=== PATIENT | male | born 1975 | race Caucasian/White ===

== ENCOUNTER 2016-05-31 18:46 | Inpatient (IN) | payer SELFPAY ==
[~2016-05-31] VITALS: Ht 172.7 cm; Wt 78.0 kg
[2016-05-31 19:20] LABS: BASOPHILS % 1.1 % (0.0-2.0); EOSINOPHILS % 6.3 % (0.0-5.0); HEMATOCRIT. 40.3 % (42.0-52.0); HEMOGLOBIN. 13.3 g/dL (14.0-18.0); LYMPHOCYTES % 28.7 % (20.0-50.0); MEAN CORPUSCULAR HEMOGLOBIN 30.4 pg (28.0-32.0); MEAN CORPUSCULAR HGB CONC 33.1 g/dL (31.0-37.0); MEAN CORPUSCULAR VOLUME 91.8 fL (80.0-94.0); MEAN PLATELET VOLUME 11.2 fl (7.4-10.4); MONOCYTES % 7.9 % (2.0-8.0); PLATELET 174 x1000/uL (130-400); RED BLOOD CELL COUNT 4.39 mill/uL (4.7-6.1); RED CELL DISTRIBUTION WIDTH 14.5 % (11.6-14.6); WHITE BLOOD COUNT 9.2 x1000/uL (4.5-11.0)
[2016-05-31 19:28] LABS: INR 1.1; PARTIAL THROMBOPLASTIN TIME 26.5 sec (24.0-34.0); PROTHROMBIN TIME 11.3 sec
[2016-05-31 19:31] LABS: CALCIUM 8.5 mg/dL (8.5-10.1); MAGNESIUM 2.2 mg/dL (1.8-2.4); PHOSPHORUS 3.4 mg/dL (2.5-4.9)
[2016-05-31] MEDS ORDERED: ONDANSETRON HCL 4MG/2ML VIAL IV STA (22:16)
[2016-05-31] MEDS ORDERED: MORPHINE SULFATE 4 MG/ML CPJ (NOT FOR IM USE) IV STA (22:16)
[2016-05-31] MEDS ORDERED: NITROGLYCERIN OINT 1GM/INCH UDPKT TD STA (22:16)
[2016-05-31] MEDS ORDERED: ASPIRIN 81MG TABLET PO STA (22:16)
[2016-05-31] MEDS ORDERED: CLONIDINE 0.1MG TABLET PO ONE (22:30)
[2016-06-01] MEDS ORDERED: HYDRALAZINE 20MG/ML VIAL IV ONE (08:30)
[2016-06-01] MEDS ORDERED: DOCUSATE SODIUM 100MG CAPSULE PO PRN (11:15)
[2016-06-01] MEDS ORDERED: ONDANSETRON HCL 4MG/2ML VIAL IV PRN (11:15)
[2016-06-01] MEDS ORDERED: CLONIDINE 0.1MG TABLET PO PRN (11:15)
[2016-06-01] MEDS ORDERED: HYDROCODONE/ACETAMINOPHEN 5/325MG TABLET PO PRN (11:15)
[2016-06-01] MEDS ORDERED: AMLODIPINE 10MG TABLET PO SCH (11:15)
[2016-06-01 11:16] VITALS: BP 138/76
[2016-06-01] MEDS ORDERED: METOPROLOL TARTRATE 25MG TABLET PO SCH (12:00)
[2016-06-01] MEDS ORDERED: DEXTROSE 50% WATER 50ML SYRINGE IV PRN (14:00)
[2016-06-01 16:00] VITALS: BP 150/77
[2016-06-01] MEDS ORDERED: BLOOD SUGAR DIAGNOSTIC STRIP TEST SCH (17:40)
[2016-06-01] MEDS ORDERED: INSULIN LISPRO 100 UNITS/ML SUBCUT SCH ×2 (18:10)
[2016-06-01 19:04] LABS: CREATINE KINASE MB FRACTION 2.3 ng/mL (0.5-3.6); TROPONIN I 0.04 ng/mL (0.00-0.04)
[2016-06-01 19:35] VITALS: BP 160/97
== END 2016-06-01 20:05 | disposition home or self-care (01) | DRG 206 ==
LOC: ER 18:48 → 7WST 22:17
PROVIDERS: ADMIT Hospitalist; ATTEND Hospitalist
DX: T82.838A Hemorrhage due to vascular prosthetic devices, implants and grafts, initial encounter (principal); I12.0 Hypertensive chronic kidney disease with stage 5 chronic kidney disease or end stage renal disease; N18.6 End stage renal disease; E11.22 Type 2 diabetes mellitus with diabetic chronic kidney disease; I73.9 Peripheral vascular disease, unspecified; Y84.1 Kidney dialysis as the cause of abnormal reaction of the patient, or of later complication, without mention of misadventure at the time of the procedure; E78.00 Pure hypercholesterolemia, unspecified; Z99.2 Dependence on renal dialysis; Z89.9 Acquired absence of limb, unspecified
CPT/HCPCS: 36415; 71010; 80048; 82550; 82553; 82962; 83735; 84100; 84484; 85025; 85610; 85730; 86850; 86900; 96374; 96375; 99291; J0360; J2270; J2405

== ENCOUNTER 2017-03-21 09:15 | Inpatient (IN) | payer SELFPAY ==
[~2017-03-21] VITALS: Ht 172.7 cm; Wt 64.0 kg
[2017-03-21] MEDS ORDERED: ONDANSETRON HCL 4MG/2ML VIAL IV STA (09:41)
[2017-03-21] MEDS ORDERED: MORPHINE SULFATE 4 MG/ML CPJ (NOT FOR IM USE) IV STA (09:41)
[2017-03-21] MEDS ORDERED: FUROSEMIDE 40MG/4ML VIAL IV ONE (09:45)
[2017-03-21] MEDS ORDERED: NITROGLYCERIN OINT 1GM/INCH UDPKT TD ONE (09:45)
[2017-03-21 10:15] LABS: BASOPHILS % 0.8 % (0.0-2.0); EOSINOPHILS % 3.4 % (0.0-5.0); HEMATOCRIT. 29.8 % (42.0-52.0); HEMOGLOBIN. 9.9 g/dL (14.0-18.0); LYMPHOCYTES % 10.5 % (20.0-50.0); MEAN CORPUSCULAR HEMOGLOBIN 31.8 pg (28.0-32.0); MEAN CORPUSCULAR VOLUME 95.1 fL (80.0-94.0); MEAN PLATELET VOLUME 10.7 fl (7.4-10.4); MONOCYTES % 4.4 % (2.0-8.0); NEUTROPHILS % 80.9 % (40.0-76.0); PLATELET 198 x1000/uL (130-400); RED BLOOD CELL COUNT 3.13 mill/uL (4.7-6.1); RED CELL DISTRIBUTION WIDTH 16.8 % (11.6-14.6)
[2017-03-21] MEDS ORDERED: IPRATROPIUM/ALBUTEROL 0.5-3(2.5)MG/3ML NEB HHN ONE ×2 (10:30→11:30)
[2017-03-21 10:32] LABS: CHLORIDE 96 mEq/L (98-107); TROPONIN I < 0.02 ng/mL (0.00-0.04)
[2017-03-21] MEDS ORDERED: IPRATROPIUM/ALBUTEROL 0.5-3(2.5)MG/3ML NEB HHN PRN (11:00)
[2017-03-21] MEDS ORDERED: DEXTROSE 50% WATER 50ML SYRINGE IV PRN (11:00)
[2017-03-21] MEDS ORDERED: ONDANSETRON HCL 4MG/2ML VIAL IV PRN (11:00)
[2017-03-21 11:02] LABS: INR 1.2; PARTIAL THROMBOPLASTIN TIME 28.7 sec (23.4-31.0); PROTHROMBIN TIME 12.2 sec (9.4-11.6)
[2017-03-21] MEDS: INSULIN LISPRO 100 UNITS/ML SUBCUT SCH ×2 (13:20→20:50)
[2017-03-21] MEDS ORDERED: HYDRALAZINE 20MG/ML VIAL IV ONE (15:15)
[2017-03-21] MEDS ORDERED: FUROSEMIDE 100MG/10ML VIAL IVP NR (15:15)
[2017-03-21] MEDS: CLONIDINE 0.1MG TABLET PO PRN (15:17)
[2017-03-21 15:47] LABS: BG BASE EXCESS 5.5 mmol/L (-2.0-2.0); BG CARBOXYHEMOGLOBIN 0.3 % (0.5-1.5); BG DEOXYHEMOGLOBIN 1.5 % (0.0-5.0); BG FRACTION INSPIRED OXYGEN 100; BG HCO3 ACT 29.6 mmol/L (22.0-26.0); BG METHEMOGLOBIN 0.3 % (0.0-1.5); BG OXYGEN SATURATION 98.5 % (92.0-98.5); BG OXYHEMOGLOBIN 97.9 % (94.0-97.0); BG PH 7.476 (7.350-7.450); BG PO2 121.6 mmHg (75.0-100.0); BG SAMPLE SITE RIGHT BRACHIAL; BG TOTAL HEMOGLOBIN 10.2 g/dL (12.0-18.0); BG VENT MODE MASK - NRB
[2017-03-21 16:57] VITALS: BP 186/111
[2017-03-21] MEDS: BLOOD SUGAR DIAGNOSTIC STRIP TEST SCH ×2 (17:00→20:50)
[2017-03-21 17:15] VITALS: BP 140/77
[2017-03-21 18:00] VITALS: BP 194/99
[2017-03-21] MEDS: NIFEDIPINE XL 60MG TAB PO SCH (18:00)
[2017-03-21 20:00] VITALS: BP 182/95
[2017-03-21 22:00] VITALS: BP 133/70
[2017-03-22] VITALS (11 sets, daily range): BP systolic 119–190; BP diastolic 59–91
[2017-03-22 05:41] LABS: HEMATOCRIT. 27.8 % (42.0-52.0); HEMOGLOBIN. 9.4 g/dL (14.0-18.0); LYMPHOCYTES % 15.9 % (20.0-50.0); MEAN CORPUSCULAR HEMOGLOBIN 32.8 pg (28.0-32.0); MEAN CORPUSCULAR VOLUME 96.9 fL (80.0-94.0); MEAN PLATELET VOLUME 10.6 fl (7.4-10.4); NEUTROPHILS % 71.1 % (40.0-76.0); PLATELET 147 x1000/uL (130-400); RED BLOOD CELL COUNT 2.87 mill/uL (4.7-6.1)
[2017-03-22 05:54] LABS: PHOSPHORUS 4.3 mg/dL (2.5-4.9)
[2017-03-22] MEDS: BLOOD SUGAR DIAGNOSTIC STRIP TEST SCH ×4 (06:05→21:08)
[2017-03-22] MEDS: INSULIN LISPRO 100 UNITS/ML SUBCUT SCH ×4 (06:05→21:08)
[2017-03-22] MEDS: NIFEDIPINE XL 60MG TAB PO SCH ×2 (08:00→21:07)
[2017-03-22] MEDS: LOSARTAN POTASSIUM 50 MG TABLET PO SCH (10:22)
[2017-03-22] MEDS: FUROSEMIDE 80MG TABLET PO SCH (10:22)
[2017-03-22] MEDS: HYDRALAZINE 20MG/ML VIAL IV PRN (13:40)
[2017-03-22] MEDS: IPRATROPIUM/ALBUTEROL 0.5-3(2.5)MG/3ML NEB HHN SCH ×2 (14:48→20:51)
[2017-03-22] MEDS: CLONIDINE 0.1MG TABLET PO PRN ×2 (17:21→22:35)
[2017-03-22] MEDS ORDERED: EPOETIN ALFA 10000UNITS/ML VIAL SUBCUT SCH (21:00)
[2017-03-23] VITALS (10 sets, daily range): BP systolic 144–173; BP diastolic 74–88
[2017-03-23] MEDS: IPRATROPIUM/ALBUTEROL 0.5-3(2.5)MG/3ML NEB HHN SCH ×5 (00:36→12:42)
[2017-03-23] MEDS: HYDRALAZINE 20MG/ML VIAL IV PRN (01:16)
[2017-03-23] MEDS: BLOOD SUGAR DIAGNOSTIC STRIP TEST SCH ×2 (06:10→12:18)
[2017-03-23] MEDS: INSULIN LISPRO 100 UNITS/ML SUBCUT SCH ×2 (06:10→12:18)
[2017-03-23 07:12] LABS: BASOPHILS % 1.1 % (0.0-2.0); EOSINOPHILS % 8.7 % (0.0-5.0); HEMATOCRIT. 27.8 % (42.0-52.0); HEMOGLOBIN. 9.5 g/dL (14.0-18.0); LYMPHOCYTES % 20.5 % (20.0-50.0); MEAN CORPUSCULAR VOLUME 96.8 fL (80.0-94.0); MEAN PLATELET VOLUME 10.5 fl (7.4-10.4); NEUTROPHILS % 61.7 % (40.0-76.0); PLATELET 149 x1000/uL (130-400); RED BLOOD CELL COUNT 2.87 mill/uL (4.7-6.1); RED CELL DISTRIBUTION WIDTH 16.6 % (11.6-14.6)
[2017-03-23 08:16] LABS: PHOSPHORUS 6.4 mg/dL (2.5-4.9)
[2017-03-23] MEDS ORDERED: LOSA100T14 PO (08:31)
[2017-03-23] MEDS ORDERED: NIFE30TA94 PO (08:31)
[2017-03-23] MEDS: LOSARTAN POTASSIUM 50 MG TABLET PO SCH ×2 (09:00→14:53)
[2017-03-23] MEDS: FUROSEMIDE 80MG TABLET PO SCH (09:00)
[2017-03-23] MEDS: NIFEDIPINE XL 60MG TAB PO SCH ×2 (09:00→14:53)
== END 2017-03-23 15:40 | disposition home or self-care (01) | DRG 133 ==
LOC: ER 10:32 → 3WST 10:58 → ENRESERV 12:13 → CANRESERV 12:13 → EDBEDREQSVC 15:26 → ENRESERV 15:30 → CANRESERV 15:52 → CANBEDREQ 16:21
PROVIDERS: ADMIT Internal Medicine; ATTEND Internal Medicine
PROC: 5A1D70Z Performance of Urinary Filtration, Intermittent, Less than 6 Hours Per Day (ICD-10-PCS; principal; 2017-03-21)
PROC: 5A1D70Z Performance of Urinary Filtration, Intermittent, Less than 6 Hours Per Day (ICD-10-PCS; 2017-03-22)
DX: J96.01 Acute respiratory failure with hypoxia (principal); I13.2 Hypertensive heart and chronic kidney disease with heart failure and with stage 5 chronic kidney disease, or end stage renal disease; I96 Gangrene, not elsewhere classified; E11.22 Type 2 diabetes mellitus with diabetic chronic kidney disease; N18.6 End stage renal disease; I50.9 Heart failure, unspecified; D63.8 Anemia in other chronic diseases classified elsewhere; E11.51 Type 2 diabetes mellitus with diabetic peripheral angiopathy without gangrene; D72.829 Elevated white blood cell count, unspecified; E78.00 Pure hypercholesterolemia, unspecified; E78.5 Hyperlipidemia, unspecified; E87.5 Hyperkalemia; I69.354 Hemiplegia and hemiparesis following cerebral infarction affecting left non-dominant side; Z82.49 Family history of ischemic heart disease and other diseases of the circulatory system; Z83.3 Family history of diabetes mellitus; Z89.511 Acquired absence of right leg below knee; Z89.512 Acquired absence of left leg below knee; Z99.2 Dependence on renal dialysis
CPT/HCPCS: 36415; 36600; 71045; 80048; 80053; 82375; 82805; 82962; 83605; 83690; 83735; 83880; 84100; 84484; 85025; 85610; 85730; 87040; 93005; 94640; 96374; 96375; 99285; J0360; J0885; J1815; J1940; J2270; J2405; J7620